=== PATIENT | female | born 1940 | race Caucasian/White ===

== ENCOUNTER 2016-10-03 16:53 | Emergency (ER) | payer OTHER ==
--- NOTE | 2016-10-03 16:57 | PDOC ---
History of Present Illness - General History Source: Patient Exam Limitations: No Limitations - History of Present Illness Initial Comments: 10/03/16 17:15 The patient is a 76 year old female with no significant past medical history, who presents to the ED with pain in both her eyes. Patient states she was applying moisturizer to her eyelids yesterday when some accidently went in both her eyes. She complains of eye irritation, with the left eye worse than the right. <Kamran Bettencourt - Last Filed: 10/03/16 17:16> <Reid Lay - Last Filed: 10/03/16 17:27> - General Chief Complaint: Eye Problem Stated Complaint: EYE SORE/BURNING Time Seen by Provider: 10/03/16 16:57 Past History <Kamran Bettencourt - Last Filed: 10/03/16 17:16> <Reid Lay - Last Filed: 10/03/16 17:27> - Past Medical History Allergies/Adverse Reactions: Allergies Allergy/AdvReac Type Severity Reaction Status Date / Time Penicillins Allergy Verified 10/03/16 16:54 Home Medications: Ambulatory Orders Amlodipine Besylate [Norvasc -] 5 mg PO DAILY 10/03/16 Atorvastatin Calcium [Lipitor] 10 mg PO DAILY 10/03/16 Tobramycin/Dexamethasone [Tobradex Eye Drops] 2 drop OU QID #5 drops.susp Review of Systems - Review of Systems Able to Perform ROS?: Yes Comments:: 10/03/16 17:15 GENERAL/CONSTITUTIONAL: No fever or chills. No weakness. HEAD, EYES, EARS, NOSE AND THROAT: Irritation to both eyes. No ear pain or discharge. No sore throat. CARDIOVASCULAR: No chest pain or shortness of breath. RESPIRATORY: No cough, wheezing, or hemoptysis. GASTROINTESTINAL: No nausea, vomiting, diarrhea or constipation. GENITOURINARY: No dysuria, frequency, or change in urination. MUSCULOSKELETAL: No joint or muscle swelling or pain. No neck or back pain. SKIN: No rash NEUROLOGIC: No headache, vertigo, loss of consciousness, or change in strength/ sensation. ENDOCRINE: No increased thirst. No abnormal weight change. HEMATOLOGIC/LYMPHATIC: No anemia, easy bleeding, or history of blood clots. ALLERGIC/IMMUNOLOGIC: No hives or skin allergy. <Kamran Bettencourt - Last Filed: 10/03/16 17:16> *Physical Exam - Vital Signs Last Vital Signs Temp Pulse Resp BP Pulse Ox 98 F 82 16 147/62 100 10/03/16 16:54 10/03/16 16:54 10/03/16 16:54 10/03/16 16:54 10/03/16 16:54 - Physical Exam Comments: 10/03/16 17:15 GENERAL: Awake, alert, and fully oriented, in no acute distress HEAD: No signs of trauma EYES: PERRLA, EOMI, sclera anicteric. Irritation to the both conjunctiva. Rest is normal. ENT: Auricles normal inspection, hearing grossly normal, nares patent, oropharynx clear without exudates. Moist mucosa NECK: Normal ROM, supple, no lymphadenopathy, JVD, or masses LUNGS: Breath sounds equal, clear to auscultation bilaterally. No wheezes, and no crackles HEART: Regular rate and rhythm, normal S1 and S2, no murmurs, rubs or gallops ABDOMEN: Soft, nontender, normoactive bowel sounds. No guarding, no rebound. No masses EXTREMITIES: Normal range of motion, no edema. No clubbing or cyanosis. No cords, erythema, or tenderness NEUROLOGICAL: Cranial nerves II through XII grossly intact. Normal speech, normal gait SKIN: Warm, Dry, normal turgor, no rashes or lesions noted. <Kamran Bettencourt - Last Filed: 10/03/16 17:16> *DC/Admit/Observation/Transfer - Attestations Scribe Attestion: 10/03/16 17:16 Documentation prepared by Kamran Bettencourt, acting as medical cost consultant for Reid Lay MD/. <Kamran Bettencourt - Last Filed: 10/03/16 17:16> - Discharge Dispostion Admit: No - Attestations Physician Attestion: 10/03/16 16:57 I, Dr. Reid Lay, attest that this document has been prepared under my direction and personally reviewed by me in its entirety. I further attest, that it accurately reflects all work, treatment, procedures and medical decision -making performed by me. <Reid Lay - Last Filed: 10/03/16 17:27> Diagnosis at time of Disposition: Conjunctivitis, Chemical conjunctivitis of both eyes - Discharge Dispostion Disposition: HOME Condition at time of disposition: Improved - Prescriptions Prescriptions: Tobramycin/Dexamethasone [Tobradex Eye Drops] 2 drop OU QID #5 drops.susp - Patient Instructions Printed Discharge Instructions: DI for Conjunctivitis Additional Instructions: Mrs Costa- Elver this happened to you. Use the things you bought over the counter and put two drops of the tobradex in each eye every six hours. Follow up with your Ophthalomologist tomorrow. Return to us if any problems. Best- Dr. Reid Lay
[2016-10-03] MEDS ORDERED: FLUORESCEIN NA 1 EA STRIP ONE (17:00)
[2016-10-03] MEDS ORDERED: TETRACAINE 0.5% OPHTH SOLN 2 ML BOTTLE ONE (17:00)
[2016-10-03] MEDS ORDERED: TOBRA 0.3%/DEXAMETH 0.1% OPHTHALMIC SUSP 2.5 ML BTL ONE (17:35)
[2016-10-03 17:36] VITALS: BP 147/62; PULSE 82; TEMP 98; BMI 22.8
[2016-10-03] MEDS ORDERED: TOBRA 0.3%/DEXAMETH 0.1% OPHTHALMIC SUSP 2.5 ML BTL OU SCH (18:00)
== END 2016-10-03 17:38 | disposition home or self-care (01) ==
LOC: FER 16:53
DX: H10.213 Acute toxic conjunctivitis, bilateral (principal)
CPT/HCPCS: 99281-25

== ENCOUNTER 2020-04-09 11:34 | Emergency (ER) | payer OTHER | END 2020-04-09 12:10 | disposition home or self-care (01) | LOC: JVIRT 11:34 | DX: Z03.818 Encounter for observation for suspected exposure to other biological agents ruled out (principal) | CPT/HCPCS: C9803; Q3014-GT; U0003 ==

== ENCOUNTER 2020-05-13 15:16 | Emergency (ER) | payer OTHER | END 2020-05-13 15:34 | disposition home or self-care (01) | LOC: JVIRT 15:16 | DX: R07.0 Pain in throat (principal); Z20.828 Contact with and (suspected) exposure to other viral communicable diseases | CPT/HCPCS: C9803; G2012-GT; Q3014-GT; U0003 ==